=== PATIENT | male | born 1990 | race Caucasian/White ===

== ENCOUNTER 2016-07-03 12:54 | Inpatient (IN) | payer OTHER ==
[~2016-07-03] VITALS: Ht 182.9 cm; Wt 94.0 kg
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
--- NOTE | ~2016-07-03 | RESCARESUM ---
"PATIENT: JANAK GARCIA | | [facility] UNIT #: [id number] | [address] AGE/SEX: 26 M : 88 | [address] | [place] [address] ADMIT/REG DATE: 07/03/16 | ROOM: [facility] LOC: ADTC | ADTC | Summary of Residential Care Primary Counselor: Ethel Mims LM,[facility] Date of Admission: 07/03/16 Date of Discharge: 07/13/16 Referral Source: self and [facility] Primary Care Provider Prior to Admission: no doctor listed Admitting Diagnosis: 304.40/F15.20 Stimulant use disorder-severe with IV use, 304.30/F12.20 Cannabis use disorder-severe, 305.1/F17.20 Tobacco use disorder (and per doctors H&P- Bipolar disorder, PTSD, Hypertension) Discharge Diagnosis: unchanged (Client appears very grandious/narcisistic and could be showing mathew) Goals Achieved: Client was discharged due to non-compliance. He did complete the GS packet and was given the NA step 1 to work on. He was put on contract on 07/12/16 for being late to programming, argumentative with staff, bragging about not completing treatment yet telling others how to work the program, lack of respect for peers/staff, singing loudly at 5:15am in guardado of clients bedrooms and he assigned himself a no talk rule but proceeded to write out his words. Client appears very self-centered/narcisistic and immature. He voiced he came to treatment because he is serious about recovery but apparently not serious enough to follow rules, or if manic or narcisistic is unable to conform to rules in structured environment. He broke his contract in a matter of hours by being late to programming 2x, putting his arm around the shoulders of a younger female peer and laying down in his bed during free time when he knows they are not to do this until bedtime and so was discharged for noncompliance. Continued Obstacles to Sobriety/Relapse Issues: immature, extreme self-centered, disrespect of others and disregard of rules, argumentative, its everyone elses fault/not his, impulsive, fraternizing when in relationship, Family Issues Addressed: His S.O. did come to the family program and a family session. His family session was on 07/10/16 and he became defensive, raised his voice and argued with her so was confronted on this and he admitted he needs help to know how to communicate and dealing with anger. He was assuming she is leaving him out of her caseplan with [facility] and became accusitory. Client was discharged on his family day due to his breaking his contract. x Individual Therapy x Group Therapy x Educational Series on Substance Abuse x Parents/Significant Others Attended Family Program Acute Medical Problems During the Course of Treatment Transferred to Hospital During the Course of Treatment Accepting of Substance Abuse Problem PATIENT: JANAK GARCIA W | | [facility] UNIT #: [id number] | [address] [place] [address] AGE/SEX: 26 M : 88 | [address] | [place] [address] ADMIT/REG DATE: 07/03/16 | ROOM: [facility] LOC: [facility] | [facility] | Summary of Residential Care x Non-accepting of Substance Abuse Problem Required Psychological or Psychiatric Consultation During the Course of Treatment Completed AA Step # (none) During This Level of Care Significant Incidences During Treatment: Clients peers complained of client always talking and doesn't know how to listen. Staff saw him as telling others how to work the AA/NA program, but lacking the humility to see he needs to learn and ask for more help. Reason For Discharge: Completed Residential TX Goals and Ready For Next Level of Care Left Tx Against Medical Advice/Treatment Goals Not Complete Completed Residential Tx Goals But Refusing Continuing Care Recommendations x Discharged Due to Noncompliance/Treatment Goals not Completed Discharged Earlier Than Planned Due to: Continuing Care Plan/Recommendations: Intensive Partial Care x Sponsor Partial Care x AA Meetings/NA Meetings x Outpatient Co-dependency Services Therapeutic Community x [facility] x Mental Health Therapy Marriage Counseling Other Specific Continuing Care Plan: Client was discharged due to non-compliance and was given the name of a [facility] that specializes in addictions/Mental Health(DUAL) to help him if he so desires. He is to attend AA/NA and call his sponsors. He hopes to get into the [facility] and we did make a referral. PRIMARY COUNSELOR: Ethel Mims"
--- NOTE | ~2016-07-03 | INDIVTXPL2 ---
PATIENT: JANAK GARCIA | | [facility] UNIT #: [id number] | [address] AGE/SEX: 26 M : 88 | [address] | [place] [address] ADMIT/REG DATE: 07/03/16 | ROOM: [facility] LOC: ADTC | ADTC | Individualized Treatment Plan DATE: 07/10/16 Problem Statement/Issue Identified: Client is experiencing family & significant other communication problems and distancing as a result of past alcohol & drug usage. Goal: Client is to learn about effects of addiction on self/families, and work on building more honest/healthy communication with family/S.O. to help his recovery. Objectives/Activities to achieve goal: 1. Client is to attend Family Educational program Sunday and and participate. See Family notes. Due Date: 07/13 or 07/20/16 Complete: Incomplete: 2. Client is to have family session with S.O. to help with his recovery, hear her feelings and perceptions, and build more healthier communication skills. See family session notes. Due Date: 07/11/16 and 07/31/16 Complete: Incomplete: 3. Client is to write feelings letters to S.O., daughter, and parents to help him own his addiction, how it hurt them, his feelings, how his recovery will be different this time and may need to "vent" in letter with parents. Share with counselor or family group. Due Date: 07/24/16 Complete: Incomplete: Client Signature Date Counselor Signaure: Date Outcome/Measurement of Progress Towards Goal: Counselor Signature: Date
--- NOTE | ~2016-07-03 | INDIVTXPL2 ---
"PATIENT: JANAK GARCIA W | | [facility] UNIT #: [id number] | [address] AGE/SEX: 26 M : 88 | [address] | [place] [address] ADMIT/REG DATE: 07/03/16 | ROOM: [facility] LOC: ADTC | ADTC | Individualized Treatment Plan DATE: 07/12/16 Problem Statement/Issue Identified: Client struggles with self-centered focus in addiction and recovery, needs to gain insight how to change from this to being humble. Goal: Client is to look at self, learn about self-centeredness/dishonesty/grandiosity and the opposite of being humble/honest/real to strengthen his recovery. Objectives/Activities to achieve goal: 1. Client is to read pages of the Big Book and NA book to learn about how these sabotage his recovery and how to be honest/humble/real to have a healthier recovery. Also look up humility/humble in dictionary. Share what he learns with counselor/group. Due Date: ongoing Complete: Incomplete: 2. Client is to read Kavon Baby, Grandiosity and Con Game/other to help gain insight, he is to journal what he most relates to and ideas of how to change. Share with counselor. Due Date: ongoing Complete: Incomplete: Client Signature Date Counselor Signaure: Date Outcome/Measurement of Progress Towards Goal: Counselor Signature: Date "
--- NOTE | ~2016-07-03 | INDIVTXPL2 ---
"PATIENT: JANAK GARCIA | | [facility] UNIT #: [id number] | [address] AGE/SEX: 26 M : 88 | [address] | [place] [address] ADMIT/REG DATE: 07/03/16 | ROOM: [facility] LOC: ADTC | ADTC | Individualized Treatment Plan DATE: 07/10/16 Problem Statement/Issue Identified: Client continues to use alcohol & drugs despite ongoing negative consequences. Goal: Client is to learn about alcoholism/drug addiction, identifying consequences of his use and learn how to work a stronger program of recovery. Objectives/Activities to achieve goal: 1. Client is to fill out Getting Started and Step 1, identifying 10+ consequences of his use and values he compromised. Share with counselor and share selected pages in group. Due Date: pg 10-11 done 07/17/16 and NA step 1 done 07/28/16 Complete: Incomplete: 2. Client is to use 2 sponsors, and is to get feedback on top 5-10 things he needs to work on/character defects that could hurt his recovery. Make list and share with counselor. Due Date: 07/18/16 Complete: Incomplete: 3. Client is to attend and talk at no more than 1/2 of AA/NA/[employer] meetings, is to pick a topic of something that would benefit him most per sponsor. Share progress with counselor. Due Date: ongoing Complete: Incomplete: Client Signature Date Counselor Signaure: Date Outcome/Measurement of Progress Towards Goal: Counselor Signature: Date "
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
--- NOTE | ~2016-07-03 | INDIVTXPL2 ---
"PATIENT: JANAK GARCIA W | | [facility] UNIT #: [id number] | [address] AGE/SEX: 26 M : 88 | [address] | [place] [address] ADMIT/REG DATE: 07/03/16 | ROOM: [facility] LOC: ADTC | ADTC | Individualized Treatment Plan DATE: 07/11/16 Problem Statement/Issue Identified: Client relapsed/returned to alcohol & drug usage after previous recovery attempts. Goal: Client is to learn about relapse prevention, identifying his relapse triggers and how to avoid further relapse. Objectives/Activities to achieve goal: 1. Client is to attend Relapse Prevention class every Sunday 3-4pm and participate. See class notes. Due Date: 07/31/16 Complete: Incomplete: 2. Client is to watch Addictive Personalities on 07/13 and make notesof how he relates. Share with counselor. Due Date: 07/19/16 Complete: Incomplete: 3. Client is to fill out Relapse Prevention packet, identifying top 5 -10 relapse triggers and develop a plan of how to avoid relapse. Discuss with counselor. Due Date: 07/31/16 Complete: Incomplete: Client Signature Date Counselor Signaure: Date Outcome/Measurement of Progress Towards Goal: Counselor Signature: Date "
--- NOTE | 2016-07-03 15:14 | NUR ---
ADMISSION NOTE Rights/Responsibilities: Copy given and explained to client. Signed and accepted by client. Client oriented to physical lay out of the ADTC unit, given Big Book and admission packet. A Chucho was assigned. [place] Client is a 26yr old single male. Brought to tx by [facility] staff where he has been for the past 2 days. Lives in [place], [place]. DOC, Meth, last used 06/27/16, 8-ball daily. No allergies, Nurse has meds. s/o will participate in family. initial paperwork given and guidelines gone over. Was searched no contraband found. Doctor has been notified.
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
--- NOTE | 2016-07-03 22:42 | NUR ---
Tech note: Client went to an onsite NA meeting. He was checked into his room, seen by the DR and gave his first intro. His S/O was at the meeting leo. SE; Entering treatment
--- NOTE | 2016-07-04 04:20 | NUR ---
Bed note: Client was in bed with eyes closed and no distress at all bed checks.
--- NOTE | 2016-07-04 12:57 | NUR ---
A.M. 1.5 hr res group/ratio 1:10/ Group heard a getting started and a goodbye letter to addiction. Discussed having resentment towards self, how kids are forgiving, and we oriented 3 new group members. This client related and gave feedback. He was oriented to group rules.
--- NOTE | 2016-07-04 13:28 | NUR ---
Tech Note: Client participated in light stretching for morning exercise and went for an outdoor walk in the afternoon. Client stated that he is working on, "How to Get Started in Treatment." Client also stated that he is trying to remain awake and alert during programming and asked his peers to help hold him accountable.
--- NOTE | 2016-07-04 13:38 | NUR ---
Education One Hour: Client heard a presentation on Sexually Transmitted Disease.
--- NOTE | 2016-07-04 16:05 | NUR ---
Relapse Prevention Education, 1.0 hours, Client attended and actively participated in relapse prevention education which focused on a Relapse Prevention Quiz and discussion over the answers.
--- NOTE | 2016-07-04 20:31 | NUR ---
education note: 1 hour lecture by counselor on" what ahmadi are you willing to pay"
--- NOTE | 2016-07-04 23:02 | NUR ---
Tech note: Client attended the Alumni meeting, participated in guided meditation and attended an onsite AA meeting. SE; Ok with self
--- NOTE | 2016-07-05 05:00 | NUR ---
Bed note: Client was in bed with eyes closed and motionless at all bed checks.
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
--- NOTE | 2016-07-05 10:43 | NUR ---
Tech notes: Client is working on Getting started
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
--- NOTE | 2016-07-05 12:38 | NUR ---
Education note: Client had education by [facility]
--- NOTE | 2016-07-05 17:29 | NUR ---
SPIRITUAL EDUCATION 1 HR. Todays topics were orienting newcomers, and taking a look at Patricio Uriostegui's 5 SECRETS TO SUCCESS which include a look at the miracles of the human body as blessings.
--- NOTE | 2016-07-05 20:58 | NUR ---
education: 1 hour video on unresolved anger and group discussion with counselor
--- NOTE | 2016-07-05 22:16 | NUR ---
Tech note: Client worked on beaded project and attended an onsite NA meeting. SE; NA meeting
--- NOTE | 2016-07-06 04:06 | NUR ---
Bed note: Client was in bed with eyes closed and no distress at all bed checks.
--- NOTE | 2016-07-06 10:44 | NUR ---
Tech Note: Client participated in Spiritual Enrichment. Client stated that he is working on Step One and writing Feelings Letters. Client was observed by staff writing on the appointment board with a marker and then erasing what he had written. Client stated that he had gotten the marker out of a coronary clinical specialist the community room. Client turned in the marker to the tech station. Even so, at the community meeting client stated that he had not checked th appoint ment board and could not say if he had appointments. Client had been remaining silent this morning, similar to how a client behaves when he has a "no talk" assignment. When asked about this in community meeting, client admitted that he had assigned himself to this task. Client was directed to talk about this with his counselor.
--- NOTE | 2016-07-06 11:30 | NUR ---
AM GRP 1.5 HRS, Ratio 1:11/ Clt participated in grp discussion and could relate to how his addiction hurt his kids and how important it is to stay clean and work recovery. His feedback is that he has done this so many times and every time he gets out, he "treats" his daughter great, but when he goes back to using, she's usually right in the mix, as well, and it's not fair for him to not be there emotionally.
--- NOTE | 2016-07-06 13:41 | NUR ---
Education 1 Hour: Client heard a presentation from a member of the recovery community who shared his experience, strength and hope.
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
--- NOTE | 2016-07-06 16:37 | NUR ---
step education 1 hr/ Focus was on step 2, handed out some questions they completed on paper and then opened it up for discussion. This client participated.
--- NOTE | 2016-07-06 23:59 | NUR ---
Tech Note: Client attended Guided Meditation and A.A.Meeting. Client left A.A.Meeting for an extended period of time. SE: Counselor meeting
--- NOTE | 2016-07-07 04:27 | NUR ---
Eduction: 1 Hour. Client attended "Unresolved Anger" video & discussion presented by staff.
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
--- NOTE | 2016-07-07 13:00 | NUR ---
PEER REVIEWS 1.5 HRS: Clt participated in peer review process and was able to give open and honest feedback to those receiving a review.
--- NOTE | 2016-07-07 16:30 | NUR ---
Tech Note: Client participated in group walk for exercise and watched "Recovery Issues Part 3" for afternoon video. Client is working on Step 1, Feelings Letters and Goodbye to Addiction.
--- NOTE | 2016-07-07 22:52 | NUR ---
TECH NOTE: Client participated in reading guidelines and watched tv/movies. Attended off site optional AA meeting. SE: AA meeting
--- NOTE | 2016-07-08 04:13 | NUR ---
Bed Note: Clt lay motionless in bed with eyes closed showing no distress at all bed checks.
--- NOTE | 2016-07-08 16:21 | NUR ---
Tech Note: Client attended NA Panel and is working on Step 1 and Feelings Letters. He had visitors.
--- NOTE | 2016-07-08 20:34 | NUR ---
Tech note: Clt played a game for recreation and attended offsite AA mtg. Watched tv and played cards. SE was all day and visits
--- NOTE | 2016-07-08 22:37 | NUR ---
TECH NOTE: Client talked with s/o at offsite AA meeting through entire speaker. Chairperson of meeting redirected group to limit side chatter or excuse themselves. Client continued to talk, look at s/o's phone and touch her constantly. Tech tried to motion to client to stop behaviors but did not want to interrupt meeting. After meeting attendees of the meeting c/o clients behavior.
--- NOTE | 2016-07-09 04:40 | NUR ---
Bed Note: Clt lay motionless in bed with eyes closed showing no distress at all bed checks.
--- NOTE | 2016-07-09 16:02 | NUR ---
Tech Note: Client participated in Big Book Study. Client stated that he is working on Step One and writing Feelings Letters. Clilent attended buddhist in the morning and received a visitor in the afternoon.
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
--- NOTE | 2016-07-10 04:41 | NUR ---
Bed Note: Clt lay motionless in bed with eyes closed showing no distress at all bed checks.
--- NOTE | 2016-07-10 10:21 | NUR ---
Tech notes: Client is working on Step 1 Fl's and mtg with armando
--- NOTE | 2016-07-10 12:00 | NUR ---
Group 1.5 hr/10:1 Clients heard peers share packets, this client was attentive and then argued with counselor when she shared how great recovery can be, saying that isn't true it is a struggle every day.
--- NOTE | 2016-07-10 13:33 | NUR ---
Education: Client attended education by Juliane on Infection prevention.
--- NOTE | 2016-07-10 14:11 | NUR ---
FAMILY SESSION 1 HR/ Client and his S.O. of 10 months, they are expecting a baby for February and he has been involved with her childrens lives also. They had great relationship the first 4 months cause they were clean/sober, she had 3 years clean/sober and now she is under an [facility] careplan, just had eval with a lady on [address] and likely will do her counseling/tx with her (is on medicaid). Client states she is going to [facility] meetings 2x/day. She has seen her kids several times/week cause bio-father was not involved with case but now she will have to share visits with him so hers are cut in 03/06. Client said he won't stay clean as she feels she knows him. They talked about client being also a part of the caseplan, he said he would always get to talk to zigzag stitcher after she met with zigzag stitcher but it was mainly to ask how clients S.O. is doing, he also had UA's done as part of this caseplan. She stated she is getting an patent attorney appt'd to her and kids have [employer], plus client will get one appt'd to him, but later said the ex and her are being appt'd attorneys. He got mad off and on saying her stories contradict but it wasn't even about this patent attorney issue. She appeared to avoid eye-contact when he raised his voice and this counselor confronted him on Assuming!! He admits he has anger troubles, they both agree by January is when the argumentativeness and anger showed up, before they would approach each other owning their wrongs, they were better communicators then. Client shared how they live with her dad and 2 other sisters live there also, client said at first it was just S.O. and him, how he developed relationship with the dad and even painted/spruced up rooms in the house. The sisters have been negative. S.O. says she is moving out due to dog feces in basement where she lives and [facility] said it is not approved for kids to be there. They would like another session so maybe by end of his tx stay. Client got angry defensive as felt excluded in the case recently, he blames it on something she must of told [facility] zigzag stitcher, but it can be many different things. Counselor suggested he call the zigzag stitcher and ask what his part of this can look like, if he has a caseplan or is tagged onto her caseplan.
--- NOTE | 2016-07-10 18:13 | NUR ---
Education: 1 Hour. Client attended "Adult Children of Alcoholics" lecture presented by staff.
--- NOTE | 2016-07-10 21:00 | NUR ---
FAMILY EDUCATION 3 HRS., GROUP 2 HRS. 1:5 Client was accompanied by his girlfriend. They took part in the discussion on the family roles, codependency and detachment. Girlfriend had to leave for visit with kids through [facility] and returned at 5:30 P.M. Both were active in group discussion, offering feedback and repeatedly bringing focus of group back to them. Girlfriend cried as peer confronted her on not taking the option of ending relationship to keep the kids with her. She reports she has been clean while working [employer] but client tested dirty so they removed her kids last week. Client got tears in his eyes and stated he did not know she had been given that option or he would have left. He shared that he loves her kids like his own. Both were asked to write feelings letters and return next Mon. evening.
--- NOTE | 2016-07-10 23:43 | NUR ---
tech note: Client attended Family. Client's baby's mother was on the unit attending the NA meeting. After the NA meeting client was seen talking with his baby's mother before she left the unit-she was seen giving the client something his child had made. Client was redirected for yelling in the hallway. When tech asked " was that you" he said "no,the monkey behind me." Client was also disruptive during the client meeting and burst out laughing when another client was trying to share. SE: Family.
--- NOTE | 2016-07-11 04:33 | NUR ---
BED NOTE: Client was in bed, motionless with eyes closed all three bed checks.
--- NOTE | 2016-07-11 11:39 | NUR ---
A.M. 1.5 hr res group/ratio 1:10/ Assignments shared were a how to get started and a letter to self. Discussion focused on resenting self, forgivness, feeling afraid and out of place and believing in self. This client participated and gave some feedback.
--- NOTE | 2016-07-11 16:00 | NUR ---
Relapse Prevention, 1.0 hours, Client attended and actively participated in relapse prevention education which focused on internal and external triggers.
--- NOTE | 2016-07-11 16:43 | NUR ---
Tech Note: Client participated in Nutritional Services presentation and is working on his vent letter, Feelings Letters and Step 1.
--- NOTE | 2016-07-11 22:46 | NUR ---
Education: 1 hour lecture given by counselor on co-dependency
--- NOTE | 2016-07-11 22:56 | NUR ---
Tech note: clients played catchphrase for rec, participated in guided meditation and attended AA meeting SE: all day
--- NOTE | 2016-07-12 04:38 | NUR ---
bed note: client was in bed with eyes closed and motionless at all bed checks.
--- NOTE | 2016-07-12 09:56 | NUR ---
Tech notes: Client is working on Getting started
--- NOTE | 2016-07-12 10:17 | NUR ---
Client turned in a vape pipe this morning, said it was in his pants that he brought to tx. Admited to taking a hit off it before turning it in.
--- NOTE | 2016-07-12 12:41 | NUR ---
AM GROUP 9:03/05 1.5 HR: Client and peers participated in ORIENTATION OF TWO NEW PEERS TO GROUP GUIDELINES, PURPOSE, GOALS AND OBJECTIVES. Group heard several process assignments/issues. Much of the focus was on how deeply kids are affected by a parent"s chemical use, even if the kids don't directly see it. This client asked for time to process the beginnings of his FEELINGS LETTER to his Significant Other. Client admitted that she is very immature for her age i.e.16 y\\o old in a 31 year old body. Client did process his letter (tho brief)l and received lots of feedback. He heard that he needs to be honest but appropiate and that he just needs to write it then process it with his counselor. Staff suggested that he might need to tone it down alittle but he will have a letter he feels comfortable sharing. Client described her as overly sensitive and is beginning to realize she is likely addicted to him.
--- NOTE | 2016-07-12 12:44 | NUR ---
Group 1.5 hr/10:1 Clients heard peers share packets, this client was attentive and then wanted to argue with counselor who shared how good recovery can be that she was wrong and it is a struggle every day.
--- NOTE | 2016-07-12 13:02 | NUR ---
IS .25 hr/ Did meet with client to go over his behavior contract. He argued every point, not singing loud, not farting in someones face, owning he has screwed up when giving advice on how to work the program. Counselor confronted these things and he did change admitting he did sing loud, at times might give advice w/o sharing he doesn't know, that he feels he knows how to work a program but wasn't doing it. He was confronted on how he corrected this counselor saying she was wrong to say recovery can be happy/rewarding, he said it is hard every day and this counselor doesn't know what she is talking about. Client appeared to quiet down and listen after this. Did sign contract and a release to his ex/mom of his child.
--- NOTE | 2016-07-12 13:16 | NUR ---
Education note: Client attended educational speaker Deny Rod
--- NOTE | 2016-07-12 17:32 | NUR ---
SPIRITUAL EDUCATION 1 HR. Today we used music to invoke discussion, symbolize how it can be either positive spirituality or negative spirituality, and discussed the feelings. We used one song that depicted addiction, one that talked about recovery, and since we are close to Mother's Day, one that depicted addiction in parents and forgiveness.
--- NOTE | 2016-07-12 18:20 | NUR ---
Education: 1 Hour. Client attended "Boudaries" lecture given by staff.
--- NOTE | 2016-07-12 23:00 | NUR ---
Tech Note: Client played a game for rec, and attended The on unit N.A.Meeting. SE: Counselor session
--- NOTE | 2016-07-13 04:30 | NUR ---
Bed Note: Client was in bed with eyes closed and motionless at all bed checks.
--- NOTE | 2016-07-13 11:30 | NUR ---
AM GRP 1.5 HRS, Ratio 1:11/ Clt stated he is having an issue w/ how honest he should be w/ telling his "fiance" about the things he's done, which include cheating on her and stealing from her sick relative and selling what he stole. He heard feedback from the grp to be honest, not to tell her at all, and eventually he was told by this counselor to speak to his counselor about it, as he took over grp for nearly 45 minutes.
--- NOTE | 2016-07-13 15:00 | NUR ---
FAMILY EDUCATION 1 HRS. Client was accompanied by his S/O. They saw the video on the disease concept. They then met with primary counselor.
--- NOTE | 2016-07-13 15:20 | NUR ---
FAMILY SESSION .25 HR/ Did pull client and his S.O. in while on break from family and explained tx won't work here as client doesn't respect following rules here. He came in voluntarily and suggested he seek outpatient counseling and group with Frank Agrawal as client sabotages self in structure. He was caught napping and therefore late to programming "It's just recreation", and he thinks it isn't his fault but the staff zero's in on him. plus he was also late to curfew and he had his arm around a peer inspite of no touch rule (did not clarify it was a female in front of his S.O. His S.O. does know Frank Agrawal and she said he would be really good for client. He asked if this affects him getting into [facility] and counselor suggested he see Frank and maybe if stays sober/clean can still get referred into the house. Was given #/address of Counselor Frank Agrawal.
--- NOTE | 2016-07-13 18:08 | NUR ---
DISCHARGE NOTE Client left treatment, having achieved maximum benefit at this time. Client packed in the presence of his roommate and left the facility, taking all personal belongings with him.
--- NOTE | 2016-08-19 13:01 | DS ---
ADMIT: 07/03/2016 RM/LOC: [facility] MR#: [id number] [address] JANAK GARCIA [address] [place] [address] General Discharge Summary SEX: M AGE: 26 : 1990 ADMISSION DATE: 07/03/2016 DISCHARGE DATE: 07/13/2016 ADMITTING DIAGNOSIS: As per history and physical. FINAL DIAGNOSES: 1. Stimulant/methamphetamine use disorder, severe. 2. Cannabis use disorder, severe. 3. Bipolar disorder. 4. Post-traumatic stress disorder by history. 5. Hypertension. 6. Tobacco use disorder. COMPLICATIONS: None. OPERATIONS: None. CLINICAL HISTORY: The patient is a 26-year-old white male, admitted to the residential care program for treatment of his methamphetamine use disorder, as well as his cannabis use disorder. The patient readily admits that he is an addict. This is the patient's fourth time in treatment here at the [facility]. For details of his pattern of usage and problems associated with his ongoing substance abuse and chemical dependence, please see the clinical history portion of the dictated history and physical. Please also see dictated history and physical for pertinent findings on physical exam. LABORATORY AND X-RAY SUMMARY FROM THIS ADMISSION: None indicated, none performed. HOSPITAL COURSE: The patient was admitted to the residential care program on 07/03/2016, he remained in the treatment program until 07/13/2016. While in treatment, his primary counselor was ELI Rao, [facility]. While in treatment, the patient participated in individual therapy and group therapy. He was also given the educational series on substance abuse and began working on these assignments, but did not complete any of his residential treatment goals. Do note, his significant other did come to the family program and family education sessions, however, that did not go well. He became very defensive and raised his voice and argued with her while in group. The patient did not complete treatment. He was discharged after 10 days in the treatment program due to noncompliance. He was placed on a contract because of his behaviors. He was late to programming, argumentative with staff, bragging about not completing treatment in the past. He showed a lack of respect to the staff as well as many of his peers. During treatment, he appeared to be very self centered and narcissistic, and had very immature responses. He stated that he came to treatment because he was serious about recovery, but this was not reflective in his behaviors while in the treatment program. He had trouble conforming to rules and had trouble functioning in the structured environment of the treatment program. He broke his contract in a matter of hours by being late to programming twice. He also had ADMIT: 07/03/2016 RM/LOC: Alejandro [facility] MR#: [id number] [address] JANAK GARCIA [address] [place] [address] General Discharge Summary SEX: M AGE: 26 : 1990 inappropriate contact with a female client. He ultimately was discharged as noted for noncompliance and violation of his contract. As noted, he did not complete treatment. He did not complete any of his residential treatment goals. He was non-accepting of his substance abuse problem. His peers complained about him always talking and that he does not know how to listen. Staff saw him as telling others how to work the AA and NA program, but lacking the humility to see the need, to learn, and ask for more help on his own. As noted, he was discharged early due to noncompliance. None of his treatment goals were completed. CONDITION AT DISCHARGE: Unchanged. PROGNOSIS: [place] to be poor. It was recommended that the patient ultimately should return to a residential treatment program, complete treatment and then go to a [facility]. It was felt that he needs further psychiatric stabilization prior to coming back to treatment. He was encouraged to see a licensed mental health provider that specializes in addiction and mental health, dual diagnosis counselor. He was encouraged to follow up with a psychiatrist and get his medications adjusted for management of his bipolar disorder. He was encouraged to attend AA and NA and maintain contact with the sponsor, but would strongly recommend that once he is stable from a psychiatric standpoint, that he come back to treatment, complete treatment, then go to a [facility]. At discharge, he was dismissed on his same medications he came into the program on. He was started on Invega at [facility] prior to coming to treatment. He was to continue Invega 3 mg daily, and lisinopril 5 mg daily for hypertension. Strongly encouraged to follow up with a dual diagnosis counselor and see the psychiatrist at [facility] for adjustment of his psychotropic medications. Hank Brunson MD/ artem JOB #: [id number] CC: Hank Brunson MD, Attending Physician FAMILY PHYSICIAN, Family Physician
== END 2016-07-13 15:40 | disposition home or self-care (01) | DRG 895 ==
LOC: ADTC 12:54
PROVIDERS: ADMIT Family Medicine
PROC: HZ34ZZZ Individual Counseling for Substance Abuse Treatment, Interpersonal (ICD-10-PCS; principal; 2016-07-03)
PROC: HZ43ZZZ Group Counseling for Substance Abuse Treatment, 12-Step (ICD-10-PCS; principal; 2016-07-03)
PROC: HZ63ZZZ Family Counseling for Substance Abuse Treatment (ICD-10-PCS; principal; 2016-07-03)
DX: F15.20 Other stimulant dependence, uncomplicated (principal); I10 Essential (primary) hypertension; F12.20 Cannabis dependence, uncomplicated; F43.10 Post-traumatic stress disorder, unspecified; F17.210 Nicotine dependence, cigarettes, uncomplicated; Z56.0 Unemployment, unspecified; Z63.72 Alcoholism and drug addiction in family